=== PATIENT | male | born 1995 | race Caucasian/White ===

== ENCOUNTER 2019-03-24 21:23 | Inpatient (IN) | payer BC ==
[~2019-03-24] VITALS: Ht 198.1 cm; Wt 56.9 kg
[2019-03-24 22:14] LABS: BASOPHILS % (AUTO) 0.2 % (0-1); EOSINOPHILS # (AUTO) 0.3 X10'3 (0-0.9); EOSINOPHILS % (AUTO) 2.1 % (0-6); HEMOGLOBIN 14.3 g/dl (14.0-17.9); LYMPHOCYTES # (AUTO) 1.3 X10'3 (1.1-4.8); LYMPHOCYTES % (AUTO) 9.4 % (21-51); MEAN CORPUSCULAR HEMOGLOBIN 28.6 PG (27.0-31.0); MEAN CORPUSCULAR HGB CONC 33.3 g/dL (33.0-36.5); MEAN CORPUSCULAR VOLUME 85.9 FL (78-98); MEAN PLATELET VOLUME 9.2 FL (7.4-10.4); MONOCYTES # (AUTO) 0.8 X10'3 (0-0.9); MONOCYTES % (AUTO) 5.6 % (2-12); NEUTROPHILS # (AUTO) 11.8 X10'3 (1.8-7.7); NEUTROPHILS % (AUTO) 82.7 % (42-75); PLATELET COUNT 264 X10'3 (140-440); RED CELL DISTRIBUTION WIDTH 13.1 % (11.5-14.5); WHITE BLOOD COUNT 14.3 X10'3 (4.5-11.0)
[2019-03-24 22:20] LABS: ALANINE AMINOTRANSFERASE 18 U/L (12-78); ALBUMIN 4.8 G/DL (3.4-5.0); ALBUMIN/GLOBULIN RATIO 1.4 (1.1-1.5); ALKALINE PHOSPHATASE 51 IU/L (46-116); ANION GAP 13 (8-16); ASPARTATE AMINO TRANSFERASE 20 U/L (10-37); BILIRUBIN,TOTAL 0.7 MG/DL (0.1-1.0); BLOOD UREA NITROGEN 11 MG/DL (7-18); BUN/CREATININE RATIO 9.6 (5.4-32.0); CALCIUM 9.4 MG/DL (8.5-10.1); CHLORIDE 101 MMOL/L (99-107); CREATININE 1.15 MG/DL (0.60-1.10); GLUCOSE 112 MG/DL (70-104); POTASSIUM 3.4 MMOL/L (3.5-5.1); SODIUM 141 MMOL/L (135-145); TOTAL CARBON DIOXIDE 27.1 MMOL/L (24-32); TOTAL PROTEIN 8.3 G/DL (6.4-8.2); eGFR 80 ML/MIN
[2019-03-24] MEDS ORDERED: ketorolac trometh. 30mg/ml inj. IV ONE ×2 (22:45→22:55)
--- NOTE | 2019-03-24 23:12 | NUR ---
Patient up to the bathroom w/o problem, reports mild SOB with exertion
[2019-03-24] MEDS ORDERED: CefTRIAXone 2gm/D5W 50ml 50 ML IV ONE (23:20)
[2019-03-24] MEDS ORDERED: iohexol 350MG/ML 100ml bottle IV ONE (23:24)
[2019-03-24] MEDS ORDERED: morphine 4 MG/ML inj SYRINge IV ONE (23:50)
[2019-03-25] VITALS (25 sets, daily range): BP systolic 99–129; BP diastolic 46–74
[2019-03-25] MEDS ORDERED: morphine 4 MG/ML inj SYRINge IV ONE (00:15)
[2019-03-25] MEDS ORDERED: magnesium hydroxide 30ml (MOM) UD suspension PO PRN (00:30)
[2019-03-25] MEDS ORDERED: potassium Cl 20 mEq SR tablet PO PRN ×3 (00:30→14:20)
[2019-03-25] MEDS ORDERED: HYDROcodone/acetaminophen 10/325mg tab PO PRN ×2 (00:30→12:35)
[2019-03-25] MEDS ORDERED: mag hydrox/Alum hydrox/simeth 30ml oral suspension PO PRN (00:30)
[2019-03-25] MEDS ORDERED: HYDROcodone/acetaminophen 5mg/325mg tablet PO PRN (00:30)
[2019-03-25] MEDS ORDERED: acetaminophen 325mg tablet PO PRN ×2 (00:30)
[2019-03-25] MEDS ORDERED: ondansetron/PF 4mg/2ml inj IV PRN ×3 (00:30→18:00)
[2019-03-25] MEDS ORDERED: potassium CL 10mEq/100ml bag 100 ML IV PRN ×2 (00:30)
[2019-03-25] MEDS ORDERED: morphine 2 MG/ML inj. syringe IV PRN (00:30)
--- NOTE | 2019-03-25 00:30 | NUR ---
MD setting up for chest tube.
[2019-03-25] MEDS ORDERED: LIDOcaine 1% w/epiNEPHrine 1:200,000 30ml vial SQ ONE (00:35)
--- NOTE | 2019-03-25 00:35 | NUR ---
Per Dr. Mayfield put in order for Lido 1% w/epr 30mL vial. I verifed with Pharm
--- NOTE | 2019-03-25 01:31 | NUR ---
Have advised Dr. Mayfield chest tube set up has been ready for a while
--- NOTE | 2019-03-25 01:33 | NUR ---
report called. waiting for chest tube placement via dr. Phillips
[2019-03-25] MEDS ORDERED: fentaNYL/PF 50MCG/1 ML 2ML syringe IV ONE ×2 (01:35)
[2019-03-25] MEDS ORDERED: fentaNYL/PF 50MCG/1 ML 2ML syringe ONE (01:38)
--- NOTE | 2019-03-25 01:51 | NUR ---
Chest tube placement begining with 75mcg for pain management. Dr. Phillips infusing lidociane for local anesthetic. 0158 chest tube placed with positive blood feedback from incision point. 0205 incision being sutured dressing being placed
[2019-03-25] MEDS: morphine 2 MG/ML inj. syringe IV PRN ×2 (02:20→06:41)
--- NOTE | 2019-03-25 02:35 | NUR ---
Per doctor abril, patient has lost a total of a liter of blood and is no longer ready to go the floor due to his blood loss. we are goign to monitor him further with a type and screen.
--- NOTE | 2019-03-25 02:40 | NUR ---
Call from Kaleb STRAUSS RN. Pt. will stay in the ER for a little bit longer for monitoring and they will transfuse 1 unit of prbc.
[2019-03-25] MEDS ORDERED: normal saline 1000ml 1,000 ML IV ONE (02:45)
[2019-03-25] MEDS ORDERED: normal saline 1000ML IV soln IVB ONE (02:45)
[2019-03-25 02:51] LABS: BASOPHILS % (AUTO) 0.3 % (0-1); EOSINOPHILS % (AUTO) 0.2 % (0-6); HEMATOCRIT 35.6 % (42.0-52.0); HEMOGLOBIN 11.8 g/dl (14.0-17.9); LYMPHOCYTES # (AUTO) 1.3 X10'3 (1.1-4.8); MEAN CORPUSCULAR HEMOGLOBIN 28.6 PG (27.0-31.0); MEAN CORPUSCULAR HGB CONC 33.2 g/dL (33.0-36.5); MEAN CORPUSCULAR VOLUME 86.2 FL (78-98); MEAN PLATELET VOLUME 9.1 FL (7.4-10.4); MONOCYTES # (AUTO) 0.6 X10'3 (0-0.9); MONOCYTES % (AUTO) 4.4 % (2-12); NEUTROPHILS # (AUTO) 11.2 X10'3 (1.8-7.7); NEUTROPHILS % (AUTO) 85.1 % (42-75); PLATELET COUNT 203 X10'3 (140-440); RED BLOOD COUNT 4.13 X10'6 (4.70-6.10); RED CELL DISTRIBUTION WIDTH 13.1 % (11.5-14.5); WHITE BLOOD COUNT 13.1 X10'3 (4.5-11.0)
--- NOTE | 2019-03-25 04:28 | NUR ---
Report received from Kaleb in the ER. Pt arrived on the unit at approximately 0345 with his mother at bedside. Chest tube is set to water seal with low continuous suction. VSS, no signs of distress. Will continue to monitor.
[2019-03-25] MEDS: normal saline 1000ml 1,000 ML IV SCH ×2 (04:30→10:29)
--- NOTE | 2019-03-25 06:34 | NUR ---
Problems reprioritized. Patient report given, questions answered & plan of care reviewed with Albina BAGLEY.
--- NOTE | 2019-03-25 06:35 | NUR ---
Problems reprioritized. Patient report given, questions answered & plan of care reviewed with Albina BAGLEY.
--- NOTE | 2019-03-25 07:00 | NUR ---
Patient in room [facility] 355. I have received report from Pari BAGLEY and had the opportunity to ask questions and assume patient care.
[2019-03-25] MEDS ORDERED: NO HOME MEDS (07:32)
[2019-03-25] MEDS: azithromycin/NS 500mg/250ml 250 ML IV SCH (08:00)
[2019-03-25] MEDS ORDERED: K and/or MAG REPLACEMENT MC SCH (08:00)
[2019-03-25] MEDS ORDERED: cefazolin/dext.iso 2gm/50ml 50 ML IV ONE (08:40)
[2019-03-25] MEDS ORDERED: gabapentin 400mg capsule PO ONE (08:40)
--- NOTE | 2019-03-25 08:40 | NUR ---
patient ordered neurontin, but unable to take as felt very nauseous. Zamzam riggins.
[2019-03-25] MEDS: CefTRIAXone/D5W-Rocephin 1gm 50 ML IV SCH (08:43)
[2019-03-25] MEDS ORDERED: ringers solution, lacted 1,000 ML IV ONE (08:57)
[2019-03-25 09:21] LABS: BASOPHILS % (AUTO) 0.3 % (0-1); EOSINOPHILS # (AUTO) 0.1 X10'3 (0-0.9); EOSINOPHILS % (AUTO) 0.5 % (0-6); HEMATOCRIT 29.2 % (42.0-52.0); HEMOGLOBIN 9.7 g/dl (14.0-17.9); LYMPHOCYTES # (AUTO) 1.6 X10'3 (1.1-4.8); LYMPHOCYTES % (AUTO) 11.5 % (21-51); MEAN CORPUSCULAR HEMOGLOBIN 28.6 PG (27.0-31.0); MEAN CORPUSCULAR HGB CONC 33.1 g/dL (33.0-36.5); MEAN CORPUSCULAR VOLUME 86.4 FL (78-98); MEAN PLATELET VOLUME 9.6 FL (7.4-10.4); MONOCYTES # (AUTO) 1.1 X10'3 (0-0.9); MONOCYTES % (AUTO) 7.9 % (2-12); NEUTROPHILS # (AUTO) 11.2 X10'3 (1.8-7.7); NEUTROPHILS % (AUTO) 79.8 % (42-75); PLATELET COUNT 228 X10'3 (140-440); RED BLOOD COUNT 3.38 X10'6 (4.70-6.10); RED CELL DISTRIBUTION WIDTH 12.8 % (11.5-14.5); WHITE BLOOD COUNT 14.1 X10'3 (4.5-11.0)
[2019-03-25] MEDS ORDERED: cefazolin/dext.iso 2gm/100ml 100 ML IV ONE (09:25)
--- NOTE | 2019-03-25 09:36 | NUR ---
Noted pt with a low BMI of 14.5 with current height documented as 78inches, however documented weight is pt stated and pt with no weight hx in EMR. During malnutrition screening, pt denies any weight loss or decrease in appetite. No edema. Unable to see pt as pt is awaiting surgery, currently in surgery holding room. Will follow up with pt tomorrow to further discuss nutrition status. Addendum: 03/25/19 at 936 by Wing Ruby DANGELO Amended: Links added. Addendum: 03/25/19 at [address] I have reviewed and agree with note by Sr. Strategic Sourcing Manager. La Sumner RD
[2019-03-25 09:43] LABS: PARTIAL THROMBOPLASTIN TIME 27 SECONDS (22-32)
--- NOTE | 2019-03-25 09:46 | NUR ---
Patient in room PACU 1. I have received report from YUDI Montemayor from Med/Surg and had the opportunity to ask questions and assume patient care.
[2019-03-25] MEDS ORDERED: BUPIVAcaine/PF 2.5 mg/ml (0.25%) 30ml vial ONE ×2 (09:57)
[2019-03-25] MEDS ORDERED: sterile Talc 2 GM powder vial ONE (09:57)
[2019-03-25] MEDS ORDERED: FLU VACC QS2019-20 36MOS UP/PF 60 MCG/0.5 ML SYRINGE IMVAC ONE (10:00)
[2019-03-25] MEDS ORDERED: pneumococcal 23-VAL P-sac vacc 25 mcg/0.5ml vial IMVAC ONE (10:00)
[2019-03-25] MEDS ORDERED: MIDAZolam 5mg/5ml vial ONE (10:01)
[2019-03-25] MEDS ORDERED: fentaNYL /PF 50mcg/ml 5ml ampule ONE (10:02)
[2019-03-25] MEDS ORDERED: rocuronium 10mg/ml inj IV ONE (10:02)
[2019-03-25] MEDS ORDERED: propofol inj 20 ML IV ONE (10:02)
[2019-03-25] MEDS ORDERED: LIDOcaine 2% (20mg/ml) 5ml vial ONE (10:02)
[2019-03-25] MEDS ORDERED: ringers solution, lacted 1,000 ML IV SCH (10:06)
[2019-03-25] MEDS ORDERED: labetalol 20mg/4ml (5mg/ml) syringe IV PRN (10:10)
[2019-03-25] MEDS ORDERED: morphine 4 MG/ML inj SYRINge IV PRN ×2 (10:10)
[2019-03-25] MEDS ORDERED: hydrALAZINE 20mg/ml inj. IV PRN (10:10)
[2019-03-25] MEDS ORDERED: fentaNYL/PF 50MCG/1 ML 2ML syringe IV PRN ×2 (10:10)
[2019-03-25] MEDS ORDERED: neostigmine methylsulfate 1 MG/ML 10ml vial ONE (10:13)
[2019-03-25] MEDS ORDERED: sevoflurane 250ml liquid IH ONE (10:13)
[2019-03-25] MEDS ORDERED: dexamethasone sod phosphate 10mg/ml inj ONE (10:13)
--- NOTE | 2019-03-25 10:15 | NUR ---
patient observed to drain another 600mls of bloody drainage in to chest drainage system. Dr solorzano aware. patient is for surgery. All preop care given , report called to Zamzam RN in recovery and Thao BAGLEY in ACCE. patient transferred to Recovery 0930hrs. Family present.
[2019-03-25] MEDS ORDERED: albumin (Human) 5% 250ml 250 ML IV ONE ×4 (10:16→11:58)
[2019-03-25 10:51] LABS: BF WBC COUNT 7600 /CU MM (0-1000); BFAPPEAR BLOODY; BFCOLOR RED; BFVOLUME 5 ML
[2019-03-25 10:52] LABS: BF RBC COUNT 2260000 /CU MM
[2019-03-25] MEDS ORDERED: ondansetron/PF 4mg/2ml inj ONE (11:21)
[2019-03-25] MEDS ORDERED: NORMAL SALINE IV PRN (12:02)
[2019-03-25] MEDS ORDERED: NALOXONE IV PRN (12:02)
[2019-03-25] MEDS ORDERED: glycopyrrolate 0.2mg/ml inj ONE (12:22)
[2019-03-25] MEDS ORDERED: naloxone 0.4 mg/ml inj IV PRN (12:35)
[2019-03-25] MEDS ORDERED: metoclopramide 5 mg/ml inj IV PRN (12:35)
[2019-03-25] MEDS ORDERED: albuterol 2.5 MG/3 ML nebule NEB PRN (12:35)
--- NOTE | 2019-03-25 12:47 | NUR ---
LATE ENTRY - BLANKET WARMER APPLIED FOR TEMP OF 35.9, 25 MG DEMEROL GIVEN FOR SHIVERS PER DR. CORONA W/GOOD RESULTS.
--- NOTE | 2019-03-25 12:47 | NUR ---
Received from OR via BED, accompanied by Anesthesiologist DR CORONA and report given by Anesthesiologist. PT DROWSY, DENIES PAIN, LEFT CHEST W/SINGLE LATERAL CHEST TUBE W/S/S DRAINAGE IN PLERUAL VAC, INSERTION SITE W/SMALL AMT OF BLOODY DRAINAGE ON DRSG/TAPE, LY CATHETER TO GRAVITY DRAINAGE W/YELLOW URINE, CVL TO RIGHT IJ OOZING, ART LINE TO RIGHT RADIAL, EPIDURAL W/BLOODY DRAINAGE AT INSERTION SITE. CXR OBTAINED, LABS DRAWN, SCD'S PLACED. PT REMAINS COMFORTABLE. Addendum: 03/25/19 at 1349 by Gloria Alvarado RN Amended: Links added.
[2019-03-25] MEDS ORDERED: meperidine/PF 25mg/ml syringe ONE (12:50)
[2019-03-25] MEDS: FENTANYL-0.9 % NACL/PF 100 ML EPI SCH (13:15)
[2019-03-25 13:27] LABS: BASOPHILS % (AUTO) 0.3 % (0-1); EOSINOPHILS % (AUTO) 0.2 % (0-6); HEMATOCRIT 35.2 % (42.0-52.0); HEMOGLOBIN 11.9 g/dl (14.0-17.9); LYMPHOCYTES # (AUTO) 1.2 X10'3 (1.1-4.8); LYMPHOCYTES % (AUTO) 8.9 % (21-51); MEAN CORPUSCULAR HGB CONC 33.7 g/dL (33.0-36.5); MEAN CORPUSCULAR VOLUME 89.1 FL (78-98); MEAN PLATELET VOLUME 9.2 FL (7.4-10.4); MONOCYTES # (AUTO) 0.9 X10'3 (0-0.9); MONOCYTES % (AUTO) 7.1 % (2-12); NEUTROPHILS # (AUTO) 10.8 X10'3 (1.8-7.7); NEUTROPHILS % (AUTO) 83.5 % (42-75); PLATELET COUNT 112 X10'3 (140-440); RED BLOOD COUNT 3.95 X10'6 (4.70-6.10); RED CELL DISTRIBUTION WIDTH 14.6 % (11.5-14.5); WHITE BLOOD COUNT 12.9 X10'3 (4.5-11.0)
[2019-03-25 13:41] LABS: ISTAT ANION GAP 10 (8-12); ISTAT BUN 5 mg/dL (6-19); ISTAT CL 106 mmol/L (99-107); ISTAT CREATININE 0.5 mg/dL (0.8-1.3); ISTAT GLUCOSE 145 mg/dL (70-104); ISTAT HGB 8.2 g/dl (14.0-18.0); ISTAT Hct 24 %PCV (42-52); ISTAT IONIZED CALCIUM 0.93 mmol/L (1.03-1.32); ISTAT K 5.2 mmol/L (3.5-5.1); ISTAT NA 138 mmol/L (135-145); ISTAT TOTAL CO2 22 mmol/L (24-32); ISTAT eGFR > 90 ML/MIN
[2019-03-25 13:44] LABS: PARTIAL THROMBOPLASTIN TIME 42 SECONDS (22-32)
[2019-03-25] MEDS ORDERED: ketorolac tromethamine 15mg/ml inj. IV SCH (14:00)
--- NOTE | 2019-03-25 14:00 | NUR ---
ARTERIAL LINE D/CD W/CANNULA INTACT, HEMOSTASIS ACHIEVED, DRSG APPLIED. Addendum: 03/25/19 at 1435 by Gloria Alvarado RN Amended: Links added.
[2019-03-25] MEDS ORDERED: magnesium 4gm in 100ml NS 100 ML IV PRN (14:20)
[2019-03-25] MEDS ORDERED: potassium Cl 20mEq/100mL bag 100 ML IV PRN (14:20)
[2019-03-25] MEDS ORDERED: magnesium 2GM in 50ml NS 50 ML IV PRN (14:20)
--- NOTE | 2019-03-25 14:20 | NUR ---
PAGER ID: [phone] MESSAGE: Clemente Toribio Rm# [phone]. No infiltrates per OSVALDO Ochoa; can we discontinue Azithromycin? Thank you. MAIKEL Sorto RN Ext# [phone] Addendum: 03/25/19 at 1446 by Thao Beaulieu RN Per , do not discontinue Azithromycin at this time. Continue until tomorrow and check back with hospitalist.
--- NOTE | 2019-03-25 14:25 | NUR ---
Pt arrived on ACCE unit. No s/s of distress, patient reports feeling comfortable. All questions and concerns addressed. Vitals stable. Family at bedside. Will continue to monitor.
--- NOTE | 2019-03-25 14:27 | NUR ---
Report called to receiving nurse. Transferred via BED ON AND , NO Belongings, RECEIVING RN AT BEDSIDE TO RECEIVE PT, BLL, CALL LIGHT GIVEN, SIDE RAILS UP X 2, CT ATTACHED TO SUCTION, PTS FAMILY PRESENT. Special Issues communicated to receiving nurse. YES. Addendum: 03/25/19 at 1434 by Gloria Alvarado RN Amended: Links added.
--- NOTE | 2019-03-25 14:42 | NUR ---
med note: pt. came to ACCE unit at 1420.
[2019-03-25 14:51] LABS: ALBUMIN 3.4 G/DL (3.4-5.0); ANION GAP 13 (8-16); BLOOD UREA NITROGEN 6 MG/DL (7-18); BUN/CREATININE RATIO 6.5 (5.4-32.0); CALCIUM 7.1 MG/DL (8.5-10.1); CHLORIDE 110 MMOL/L (99-107); CREATININE 0.93 MG/DL (0.60-1.10); GLUCOSE 133 MG/DL (70-104); POTASSIUM 4.8 MMOL/L (3.5-5.1); SODIUM 141 MMOL/L (135-145); TOTAL CARBON DIOXIDE 17.7 MMOL/L (24-32); eGFR > 90 ML/MIN
[2019-03-25 15:01] LABS: MAGNESIUM 1.3 MG/DL (1.5-2.4)
[2019-03-25] MEDS: ceFAZolin inj. 1,000 MG in dextrose 5%-water 50ml 50 ML IV SCH (15:19)
--- NOTE | 2019-03-25 17:42 | NUR ---
PAGER ID: [phone] MESSAGE: Patient Clemente Gillespie Rm# [phone]. Patient only has Reglan Q6H for nausea and was received less than 3 hours ago. patient is reporting nausea again. Would you like to order Zofran? Thank you. MAIKEL Sorto, RN [phone]
--- NOTE | 2019-03-25 17:58 | NUR ---
Problems reprioritized. Patient report given, questions answered & plan of care reviewed with YUDI Lira.
--- NOTE | 2019-03-25 18:05 | NUR ---
I have reviewed and agree with all interventions, assessments performed and documented by YUDI Osuna.
--- NOTE | 2019-03-25 18:25 | NUR ---
Patient in room MED 316. I have received report from YUDI Osuna and Mee RN and had the opportunity to ask questions and assume patient care.
[2019-03-25] MEDS ORDERED: temazepam 15mg capsule PO PRN (21:00)
[2019-03-25] MEDS: lactobacillus rhamnosus 10,000 MMU CELLS/CAPSULE PO SCH (21:06)
[2019-03-25] MEDS: docusate sod 100mg capsule PO SCH (21:06)
[2019-03-25] MEDS: gabapentin 300mg capsule PO SCH (21:07)
[2019-03-26] VITALS (8 sets, daily range): BP systolic 96–122; BP diastolic 51–76
[2019-03-26] MEDS: normal saline 1000ml 1,000 ML IV SCH ×2 (00:09→06:29)
[2019-03-26] MEDS: ceFAZolin inj. 1,000 MG in dextrose 5%-water 50ml 50 ML IV SCH (00:09)
[2019-03-26 04:48] LABS: BASOPHILS % (AUTO) 0.4 % (0-1); EOSINOPHILS # (AUTO) 0.3 X10'3 (0-0.9); EOSINOPHILS % (AUTO) 2.4 % (0-6); HEMATOCRIT 31.9 % (42.0-52.0); HEMOGLOBIN 11.1 g/dl (14.0-17.9); LYMPHOCYTES # (AUTO) 1.8 X10'3 (1.1-4.8); LYMPHOCYTES % (AUTO) 17.2 % (21-51); MEAN CORPUSCULAR HEMOGLOBIN 30.1 PG (27.0-31.0); MEAN CORPUSCULAR HGB CONC 34.9 g/dL (33.0-36.5); MEAN CORPUSCULAR VOLUME 86.4 FL (78-98); MEAN PLATELET VOLUME 8.9 FL (7.4-10.4); MONOCYTES # (AUTO) 1.1 X10'3 (0-0.9); MONOCYTES % (AUTO) 10.3 % (2-12); NEUTROPHILS # (AUTO) 7.4 X10'3 (1.8-7.7); NEUTROPHILS % (AUTO) 69.7 % (42-75); PLATELET COUNT 112 X10'3 (140-440); RED BLOOD COUNT 3.69 X10'6 (4.70-6.10); RED CELL DISTRIBUTION WIDTH 14.6 % (11.5-14.5); WHITE BLOOD COUNT 10.6 X10'3 (4.5-11.0)
[2019-03-26 05:11] LABS: ALANINE AMINOTRANSFERASE 13 U/L (12-78); ALBUMIN/GLOBULIN RATIO 1.5 (1.1-1.5); ALKALINE PHOSPHATASE 25 IU/L (46-116); ANION GAP 8 (8-16); ASPARTATE AMINO TRANSFERASE 21 U/L (10-37); BILIRUBIN,TOTAL 0.9 MG/DL (0.1-1.0); BLOOD UREA NITROGEN 4 MG/DL (7-18); CALCIUM 8.1 MG/DL (8.5-10.1); CHLORIDE 107 MMOL/L (99-107); GLUCOSE 78 MG/DL (70-104); MAGNESIUM 1.6 MG/DL (1.5-2.4); POTASSIUM 3.6 MMOL/L (3.5-5.1); SODIUM 141 MMOL/L (135-145); TOTAL CARBON DIOXIDE 26.1 MMOL/L (24-32); eGFR > 90 ML/MIN
[2019-03-26] MEDS ORDERED: famotidine 20mg tablet PO ONE (06:00)
--- NOTE | 2019-03-26 06:10 | NUR ---
Patient in room MED 316. I have received report from YUDI Lira and had the opportunity to ask questions and assume patient care.
--- NOTE | 2019-03-26 06:30 | NUR ---
Problems reprioritized. Patient report given, questions answered & plan of care reviewed with YUDI Osuna and YUDI Caban.
[2019-03-26] MEDS: CefTRIAXone/D5W-Rocephin 1gm 50 ML IV SCH (07:09)
[2019-03-26] MEDS: docusate sod 100mg capsule PO SCH ×2 (07:09→20:44)
[2019-03-26] MEDS: lactobacillus rhamnosus 10,000 MMU CELLS/CAPSULE PO SCH ×2 (07:11→20:44)
[2019-03-26] MEDS: gabapentin 300mg capsule PO SCH ×2 (07:11→20:44)
[2019-03-26] MEDS: azithromycin/NS 500mg/250ml 250 ML IV SCH (07:11)
[2019-03-26] MEDS: FENTANYL-0.9 % NACL/PF 100 ML EPI SCH (07:13)
--- NOTE | 2019-03-26 15:43 | NUR ---
Removed right IJ, 2 sutures removed, lumen intact, pt tolerated well. No bleeding or hematoma present. Discontinued toledo catheter, 10cc removed from balloon, pt tolerated well.
--- NOTE | 2019-03-26 16:06 | NUR ---
Reviewed xray report. Spoke with OSVALDO Ochoa regarding results; chest tube atrium to stay at water seal. Until further notice.
--- NOTE | 2019-03-26 16:19 | NUR ---
F/u: Pt s/p L VATS for control of hemorrhage admitted w/ spontaneous L pneumothorax. CT placed. PO 75-100% full liquids advanced to regular diet today. Pt/parents seen by RD and pt tall/thin but not visible cachectic. Pt reports good appetite usually eats well at home and endorses good appetite here looking forward to solid foods for dinner. Pt reports ht is actually 75.5-76" as opposed to 78in. as documented in EMR which corrects BMI to 15.4. Still underweight but given physical assessment and no additional criteria does not qualify for malnutrition at this time. Pt requests leatha SAGASTUME; dietary notified. Will continue to monitor. Addendum: 03/26/19 at [address] Amended: Links added.
[2019-03-26] MEDS: HYDROcodone/acetaminophen 10/325mg tab PO PRN (16:57)
--- NOTE | 2019-03-26 17:14 | NUR ---
I have reviewed and agree with all interventions, assessments performed and documented by YUDI Osuna.
--- NOTE | 2019-03-26 18:36 | NUR ---
Problems reprioritized. Patient report given, questions answered & plan of care reviewed with YUDI Wynne.
--- NOTE | 2019-03-26 19:39 | NUR ---
Patient in room MED 316. I have received report from Mee Martin and had the opportunity to ask questions and assume patient care.
[2019-03-27 02:00] VITALS: BP 105/65
[2019-03-27 02:38] LABS: BASOPHILS % (AUTO) 0.5 % (0-1); EOSINOPHILS # (AUTO) 0.5 X10'3 (0-0.9); EOSINOPHILS % (AUTO) 4.8 % (0-6); HEMATOCRIT 33.1 % (42.0-52.0); HEMOGLOBIN 11.8 g/dl (14.0-17.9); LYMPHOCYTES # (AUTO) 1.3 X10'3 (1.1-4.8); LYMPHOCYTES % (AUTO) 13.9 % (21-51); MEAN CORPUSCULAR HEMOGLOBIN 30.5 PG (27.0-31.0); MEAN CORPUSCULAR HGB CONC 35.6 g/dL (33.0-36.5); MEAN CORPUSCULAR VOLUME 85.6 FL (78-98); MEAN PLATELET VOLUME 8.9 FL (7.4-10.4); MONOCYTES # (AUTO) 0.9 X10'3 (0-0.9); MONOCYTES % (AUTO) 9.7 % (2-12); NEUTROPHILS # (AUTO) 6.8 X10'3 (1.8-7.7); NEUTROPHILS % (AUTO) 71.1 % (42-75); PLATELET COUNT 131 X10'3 (140-440); RED BLOOD COUNT 3.87 X10'6 (4.70-6.10); RED CELL DISTRIBUTION WIDTH 14.4 % (11.5-14.5); WHITE BLOOD COUNT 9.6 X10'3 (4.5-11.0)
[2019-03-27 02:43] LABS: ANION GAP 6 (8-16); BLOOD UREA NITROGEN 6 MG/DL (7-18); BUN/CREATININE RATIO 7.5 (5.4-32.0); CALCIUM 8.4 MG/DL (8.5-10.1); CHLORIDE 105 MMOL/L (99-107); GLUCOSE 134 MG/DL (70-104); MAGNESIUM 1.7 MG/DL (1.5-2.4); POTASSIUM 3.2 MMOL/L (3.5-5.1); SODIUM 141 MMOL/L (135-145); TOTAL CARBON DIOXIDE 30.4 MMOL/L (24-32); eGFR > 90 ML/MIN
[2019-03-27 06:00] VITALS: BP 120/72
--- NOTE | 2019-03-27 06:29 | NUR ---
Problems reprioritized. Patient report given, questions answered & plan of care reviewed with Mee BAGLEY.
--- NOTE | 2019-03-27 06:56 | NUR ---
Patient in room MED 316. I have received report from YUDI Wynne and had the opportunity to ask questions and assume patient care.
[2019-03-27] MEDS: HYDROcodone/acetaminophen 10/325mg tab PO PRN (08:05)
[2019-03-27] MEDS: gabapentin 300mg capsule PO SCH (08:05)
[2019-03-27] MEDS: docusate sod 100mg capsule PO SCH (08:06)
[2019-03-27] MEDS: lactobacillus rhamnosus 10,000 MMU CELLS/CAPSULE PO SCH (08:06)
[2019-03-27] MEDS: CefTRIAXone/D5W-Rocephin 1gm 50 ML IV SCH (08:08)
[2019-03-27] MEDS: azithromycin/NS 500mg/250ml 250 ML IV SCH (08:08)
[2019-03-27] MEDS ORDERED: HYDR-4353 PO (09:36)
[2019-03-27] MEDS ORDERED: DOCU100C40 PO (09:36)
[2019-03-27 11:00] VITALS: BP 113/74
--- NOTE | 2019-03-27 17:00 | NUR ---
pt. discharged from facility at 1530. pt. walked out to personal vehicle with a friend. pt. refused staff escort. pt. signed and understood all paperwork. pt. IV was d/c intact. all new meds called into [facility], [address]. pt. understands to call to make f/u appointments. pt. left with all belongings.
[2019-03-28] MEDS ORDERED: azithromycin 250mg tablet PO SCH (08:00)
== END 2019-03-27 15:30 | disposition home or self-care (01) | DRG 982 ==
LOC: ER 21:23 → ED HOLD 03-25 00:42 → SUR 3N 03-25 03:51 → PACU 03-25 09:42 → MED 3N 03-25 14:20
PROVIDERS: ADMIT Hospitalist; ATTEND Hospitalist
PROC: 0W9B30Z Drainage of Left Pleural Cavity with Drainage Device, Percutaneous Approach (ICD-10-PCS; 2019-03-24)
PROC: 03HY32Z Insertion of Monitoring Device into Upper Artery, Percutaneous Approach (ICD-10-PCS; 2019-03-24)
PROC: 02HV33Z Insertion of Infusion Device into Superior Vena Cava, Percutaneous Approach (ICD-10-PCS; 2019-03-24)
PROC: B548ZZA Ultrasonography of Superior Vena Cava, Guidance (ICD-10-PCS; 2019-03-24)
PROC: B32T1ZZ Computerized Tomography (CT Scan) of Left Pulmonary Artery using Low Osmolar Contrast (ICD-10-PCS; 2019-03-24)
PROC: B3201ZZ Computerized Tomography (CT Scan) of Thoracic Aorta using Low Osmolar Contrast (ICD-10-PCS; 2019-03-24)
PROC: B32S1ZZ Computerized Tomography (CT Scan) of Right Pulmonary Artery using Low Osmolar Contrast (ICD-10-PCS; 2019-03-24)
PROC: 0W3C4ZZ Control Bleeding in Mediastinum, Percutaneous Endoscopic Approach (ICD-10-PCS; 2019-03-25)
PROC: 30233N1 Transfusion of Nonautologous Red Blood Cells into Peripheral Vein, Percutaneous Approach (ICD-10-PCS; 2019-03-25)
PROC: 0WCB4ZZ Extirpation of Matter from Left Pleural Cavity, Percutaneous Endoscopic Approach (ICD-10-PCS; principal; 2019-03-25 10:30)
DX: J94.2 Hemothorax (principal); D62 Acute posthemorrhagic anemia; J90 Pleural effusion, not elsewhere classified; E87.6 Hypokalemia; F17.200 Nicotine dependence, unspecified, uncomplicated; J45.909 Unspecified asthma, uncomplicated; Z88.1 Allergy status to other antibiotic agents
CPT/HCPCS: 32551; 93306; 96365; 96375; 99285; Z7506; Z7508; 36415; 71045; 71046; 71275; 80047; 80048; 80053; 82948; 83605; 83735; 85025; 85384; 85610; 85730; 86885; 86900; 86901; 86920; 87040; 87081; 89051; 93005; 94760; 97110; 97116; 97161; 97530; A4215; A4618; A6449; A7000; A7048; C1758; G0378; J0456; J0690; J0696; J1100; J1885; J2001; J2175; J2250; J2270; J2405; J2704; J2710; J2765; J3010; J3490; J7030; J7060; J7120; P9016; P9045; Q9967

== ENCOUNTER 2019-04-08 13:45 | Outpatient (CLI) | payer BC ==
[~2019-04-08 13:45] MED LIST: DOCU100C40 PO; HYDR-4353 PO
== END 2019-04-08 23:59 | disposition home or self-care (01) ==
LOC: RAD 13:45
PROVIDERS: ATTEND Thoracic Surgery (Cardiothoracic Vascular Surgery)
DX: J90 Pleural effusion, not elsewhere classified (principal); J94.8 Other specified pleural conditions; Z90.2 Acquired absence of lung [part of]
CPT/HCPCS: 71046

== ENCOUNTER 2019-05-31 19:30 | Emergency (ER) | payer BC ==
[~2019-05-31] VITALS: Ht 193 cm; Wt 59.0 kg
[2019-05-31 20:09] LABS: BASOPHILS % (AUTO) 0.6 % (0-1); EOSINOPHILS # (AUTO) 0.2 X10'3 (0-0.9); EOSINOPHILS % (AUTO) 2.4 % (0-6); HEMOGLOBIN 13.4 g/dl (14.0-17.9); LYMPHOCYTES # (AUTO) 1.3 X10'3 (1.1-4.8); LYMPHOCYTES % (AUTO) 18.3 % (21-51); MEAN CORPUSCULAR HEMOGLOBIN 28.3 PG (27.0-31.0); MEAN CORPUSCULAR HGB CONC 33.6 g/dL (33.0-36.5); MEAN CORPUSCULAR VOLUME 84.3 FL (78-98); MONOCYTES # (AUTO) 0.5 X10'3 (0-0.9); MONOCYTES % (AUTO) 6.6 % (2-12); NEUTROPHILS # (AUTO) 5.3 X10'3 (1.8-7.7); NEUTROPHILS % (AUTO) 72.1 % (42-75); PLATELET COUNT 229 X10'3 (140-440); RED BLOOD COUNT 4.74 X10'6 (4.70-6.10); RED CELL DISTRIBUTION WIDTH 13.2 % (11.5-14.5); WHITE BLOOD COUNT 7.3 X10'3 (4.5-11.0)
[2019-05-31 20:30] LABS: ALANINE AMINOTRANSFERASE 21 U/L (12-78); ALBUMIN 4.4 G/DL (3.4-5.0); ALBUMIN/GLOBULIN RATIO 1.3 (1.1-1.5); ALKALINE PHOSPHATASE 50 IU/L (46-116); ANION GAP 7 (8-16); ASPARTATE AMINO TRANSFERASE 19 U/L (10-37); BILIRUBIN,TOTAL 0.3 MG/DL (0.1-1.0); BLOOD UREA NITROGEN 14 MG/DL (7-18); CALCIUM 9.4 MG/DL (8.5-10.1); CHLORIDE 106 MMOL/L (99-107); GLUCOSE 81 MG/DL (70-104); POTASSIUM 3.6 MMOL/L (3.5-5.1); SODIUM 142 MMOL/L (135-145); TOTAL CARBON DIOXIDE 28.7 MMOL/L (24-32); TOTAL PROTEIN 7.7 G/DL (6.4-8.2); eGFR > 90 ML/MIN
[2019-05-31] MEDS ORDERED: acetaminophen 325mg tablet PO ONE (21:45)
[2019-05-31] MEDS ORDERED: ONDA4TAB6 PO (21:47)
[2019-05-31] MEDS ORDERED: HYDR-3965 PO (21:47)
[2019-05-31 22:04] VITALS: BP 115/80
== END 2019-05-31 22:08 | disposition home or self-care (01) ==
LOC: ER 19:31
DX: J93.9 Pneumothorax, unspecified (principal); F12.90 Cannabis use, unspecified, uncomplicated; F10.99 Alcohol use, unspecified with unspecified alcohol-induced disorder; Z88.1 Allergy status to other antibiotic agents; Z79.899 Other long term (current) drug therapy; Y90.9 Presence of alcohol in blood, level not specified
CPT/HCPCS: 36415; 71045; 71250; 80053; 84484; 85025; 93005; 99284

== ENCOUNTER 2019-06-03 13:28 | Emergency (ER) | payer BC ==
[~2019-06-03] VITALS: Ht 193 cm; Wt 59.1 kg
[~2019-06-03 13:28] MED LIST changes: +HYDR-3965 PO; +ONDA4TAB6 PO
[2019-06-03 13:45] VITALS: BP 122/79
== END 2019-06-03 14:48 | disposition home or self-care (01) ==
LOC: ER 13:28
DX: J93.9 Pneumothorax, unspecified (principal); F12.90 Cannabis use, unspecified, uncomplicated; F10.99 Alcohol use, unspecified with unspecified alcohol-induced disorder; Z88.1 Allergy status to other antibiotic agents; Z79.899 Other long term (current) drug therapy; Y90.9 Presence of alcohol in blood, level not specified
CPT/HCPCS: 71046; 99283

== ENCOUNTER 2022-04-04 05:45 | Emergency (ER) | payer BC ==
[~2022-04-04] VITALS: Ht 193 cm; Wt 67.3 kg
[~2022-04-04 05:45] MED LIST changes: -HYDR-3965 PO
[2022-04-04 07:39] LABS: BASOPHILS % (AUTO) 0.7 % (0-1); EOSINOPHILS % (AUTO) 0.7 % (0-6); HEMATOCRIT 42.6 % (42.0-52.0); HEMOGLOBIN 14.1 g/dl (14.0-17.9); LYMPHOCYTES # (AUTO) 0.7 X10'3 (1.1-4.8); LYMPHOCYTES % (AUTO) 15.4 % (21-51); MEAN CORPUSCULAR HEMOGLOBIN 28.2 PG (27.0-31.0); MEAN CORPUSCULAR VOLUME 85.3 FL (78-98); MEAN PLATELET VOLUME 8.8 FL (7.4-10.4); MONOCYTES # (AUTO) 0.7 X10'3 (0-0.9); MONOCYTES % (AUTO) 15.6 % (2-12); NEUTROPHILS # (AUTO) 3.1 X10'3 (1.8-7.7); NEUTROPHILS % (AUTO) 67.6 % (42-75); PLATELET COUNT 212 X10'3 (140-440); RED CELL DISTRIBUTION WIDTH 12.6 % (11.5-14.5); WHITE BLOOD COUNT 4.6 X10'3 (4.5-11.0)
[2022-04-04 07:50] LABS: ALANINE AMINOTRANSFERASE 43 U/L (12-78); ALBUMIN 4.1 G/DL (3.4-5.0); ALBUMIN/GLOBULIN RATIO 1.1 (1.1-1.5); ALKALINE PHOSPHATASE 41 IU/L (46-116); ANION GAP 7 (8-16); ASPARTATE AMINO TRANSFERASE 32 U/L (10-37); BILIRUBIN,TOTAL 0.4 MG/DL (0.1-1.0); BLOOD UREA NITROGEN 17 MG/DL (7-18); BUN/CREATININE RATIO 13.4 (5.4-32.0); CALCIUM 8.7 MG/DL (8.5-10.1); CHLORIDE 102 MMOL/L (99-107); CREATININE 1.27 MG/DL (0.60-1.10); GLUCOSE 95 MG/DL (70-104); SODIUM 136 MMOL/L (135-145); TOTAL CARBON DIOXIDE 26.6 MMOL/L (24-32); TOTAL PROTEIN 7.7 G/DL (6.4-8.2); eGFR 70 ML/MIN
[2022-04-04] MEDS: methylPREDNISolone sod succ 125mg/2ml vial IV ONE (09:12)
[2022-04-04] MEDS: normal saline 1000ML IV soln IV ONE (09:12)
[2022-04-04] MEDS: ipratropium/albuterol 3ml nebule NEB ONE (09:34)
[2022-04-04 09:54] LABS: D-DIMER 0.64 MG/L FEU (0-0.50)
[2022-04-04] MEDS ORDERED: iohexol 350MG/ML 100ml bottle IV ONE (10:18)
[2022-04-04] MEDS ORDERED: iohexol 350 MG/1 ML 200ml bottle ONE (10:19)
[2022-04-04] MEDS ORDERED: BUDE180A INH (12:15)
[2022-04-04] MEDS ORDERED: DEXA6TAB PO (12:15)
[2022-04-04] MEDS ORDERED: ALBU6.7H14 INH (12:15)
[2022-04-04] MEDS ORDERED: NAPR-56 PO (12:15)
[2022-04-04] MEDS: ketorolac trometh. 30mg/ml inj. IV ONE (12:47)
[2022-04-04 12:48] VITALS: BP 135/60
== END 2022-04-04 12:57 | disposition home or self-care (01) ==
LOC: ER 05:46
DX: R07.89 Other chest pain (principal); F12.90 Cannabis use, unspecified, uncomplicated; Z86.16 Personal history of COVID-19; Z72.89 Other problems related to lifestyle; Z88.1 Allergy status to other antibiotic agents; Z79.899 Other long term (current) drug therapy
CPT/HCPCS: 36415; 71046; 71275; 80053; 83605; 83880; 84484; 85025; 85379; 87040; 87077; 87186; 93005; 94640; 96361; 96374; 96375; 99285; J1885; J2930; J3490; J7030; Q9967; 94760

== ENCOUNTER 2022-10-21 14:36 | Emergency (ER) | payer BC, OTHER, SELFPAY ==
[~2022-10-21] VITALS: Ht 193 cm; Wt 65.9 kg
[~2022-10-21 14:36] MED LIST changes: +ALBU6.7H14 INH; +BUDE180A INH; +DEXA6TAB PO
[2022-10-21 14:41] VITALS: BP 111/76
[2022-10-21] MEDS ORDERED: acetaminophen 325mg tablet PO ONE (15:15)
== END 2022-10-21 15:25 | disposition home or self-care (01) ==
LOC: ER 14:37
DX: S06.0X0A Concussion without loss of consciousness, initial encounter (principal); F12.10 Cannabis abuse, uncomplicated; Z88.1 Allergy status to other antibiotic agents; Z79.899 Other long term (current) drug therapy; W18.39XA Other fall on same level, initial encounter; Y93.89 Activity, other specified; Y92.89 Other specified places as the place of occurrence of the external cause; Y99.8 Other external cause status
CPT/HCPCS: 99282

== ENCOUNTER 2025-04-17 14:39 | Emergency (ER) | payer OTHER ==
[~2025-04-17] VITALS: Ht 193 cm; Wt 62.1 kg
[~2025-04-17 14:39] MED LIST changes: -BUDE180A INH; +BUDE180A5 INH
[2025-04-17 14:55] VITALS: TEMP 97.3
--- NOTE | 2025-04-17 15:34 | RADIOLOGY REPORT ---
CLINICAL INDICATION: KNEE PAIN TECHNIQUE: DI KNEE, COMP 4 VW MIN left COMPARISON: None FINDINGS/IMPRESSION: : There is no evidence of acute fracture or dislocation. Soft tissues are unremarkable.
--- NOTE | 2025-04-17 15:37 | Physician Documentation ---
History of Present Illness ~ Chief Complaint: Knee Pain Stated Complaint: L KNEE PAIN Time Seen by MD: 14:56 Primary Medical Doctor: Dr. Lyon HPI @9 y/o male with left knee pain x 1 week Being followed by WC, TAking medrol dose for pain and wearing sleave compression. Continues to have hager to lateral knee without fever or reproted injury yet over use reported at work. Tetanus witin 5 years: No Medication Reconciliation Allergies: Coded Allergies: amoxicillin (Verified Allergy, Unknown, 04/17/25) Scheduled Albuterol Sulfate (Proventil Hfa), 2 PUFFS INH Q6H Budesonide (Pulmicort Flexhaler), 2 PUFFS INH Q12H Dexamethasone (Dexamethasone), 1 TAB PO DAILY Docusate Sodium (Docusate Sodium), 100 MG PO BID Scheduled PRN Hydrocodone Bit/Acetaminophen (Cataldo 10-325 Tablet), 1 TAB PO Q4H PRN for moderate pain 4-6 Ondansetron Hcl (Zofran), 1 TAB PO Q6H PRN for nausea/vomiting Past Medical History Past Medical History: *PULMONARY* Past Surgical History: no surgical history Patient History: Patient reports no known family medical history. Alcohol Use: Occasionally Drug Use: marijuana Lives In: Home Occupation: employed Review of Systems All Other Systems at this time: Reviewed and Negative Musculoskeletal: Reports: see HPI Physical Exam Vital Signs: RN Vital Signs have been reviewed: Yes, Temperature: 97.3, Source: Oral, Heart Rate: 98, Respiratory Rate: 18, BP: 135/92, Pulse Oximetry: 96, Weight: 62.100 Oxygen Flow Rate: 0 General Appearance: alert, WD/WN, mild distress Head: normal inspection EENT: PERRL/EOMI Knees: limited ROM, soft tissue tenderness; No: joint effusion Ligaments: lateral laxity (Neg patella grind, LCL ttp, reduced ROM, no effusion or erythema) Skin: normal color Lymphatic: normal inspection Neurologic: oriented x4 Psychiatric: normal mood/affect Progress Results/Orders Results/Orders Orders - ADILSON BRITTON PAC Knee, Complete (04/17/25 14:59) Completed Orders - ADILSON BRITTON PAC Knee, Complete (04/17/25 14:59) Vital Signs 04/17/25 14:55 Temp 97.3 Pulse 98 Resp 18 B/P (MAP) 135/92 Pulse Ox 96 O2 Flow Rate 0 Medical Decision Making Additional information obtaine: N/A Findings Examination and history consistent with a lateral collateral ligament injury likely from overuse. X-rays are reassuring. Knee immobilizer and crutches provided for patient. No work for three days. Patient to be released by worker's injury. He has already aligned. General Diff Dx:Considerations: Include: Abrasion, Contusion, Fracture, Hematoma, Laceration, Malunion, Neurovascular injury, Open fracture, Sprain, Ulcer, Other Knee Diff Dx:Considerations: Include: Abrasion, Arthritis, Contusion, DJD, Fracture-femur, Fracture-fibula, Fracture-patella, Fracture-tibia, Gout, Hematoma, Laceration, Meniscus injury, Neurovascular injury, Open fracture, Rheumatoid arthritis, Septic, Sprain, Sprain-MCL, Sprain-LCL, Sprain-ACL, Sprain-PCL, Other Ankle Diff Dx:Considerations: Include: Other (Noncontributory) Foot Diff Dx:Considerations: Include: Other (Noncontributory) Toe Diff Dx:Considerations: Include: Other (Noncontributory) Departure Disposition: 01 HOME / SELF CARE / HOMELESS Impression: Primary Impression: Sprain of knee Qualified Codes: S83.422D - Sprain of lateral collateral ligament of left knee, subsequent encounter Condition: Stable Discharge Instructions: Acute Knee Pain, Adult Additional Instructions: Your examination is consistent with Lateral collateral ligament injury. Please wear knee immobilizer for comfort and support. You have been taken off work unitl 04/20. Make contact with Workers Injury for release back to work or work augmentaion. Continue with your current medications as directed. Your X ray is reassuring for no fracture. Referrals: NO PRIMARY CARE PROVIDER (PCP) Education Educated: Patient Educated regarding: diagnosis, treatment, prognosis Signature Scribe Signature: . Attestation: . ADILSON BRITTON PAC Apr 17, 2025 15:37
[2025-04-17 15:50] VITALS: BP 121/76; PULSE 78; RESP 16; O2SAT 96
== END 2025-04-17 15:50 | disposition home or self-care (01) ==
LOC: ER 14:40
DX: S83.422A Sprain of lateral collateral ligament of left knee, initial encounter (principal); F12.90 Cannabis use, unspecified, uncomplicated; Z88.1 Allergy status to other antibiotic agents; Z79.899 Other long term (current) drug therapy; Z72.89 Other problems related to lifestyle; X50.0XXA Overexertion from strenuous movement or load, initial encounter; Y93.89 Activity, other specified; Y92.89 Other specified places as the place of occurrence of the external cause; Y99.8 Other external cause status
CPT/HCPCS: 29505; 73564; 99283